=== PATIENT | female | born 1935 | race Caucasian/White ===

== ENCOUNTER 2018-06-13 13:15 | Emergency (ER) | payer MEDICARE, OTHER ==
[~2018-06-13] VITALS: Ht 170.2 cm; Wt 98.0 kg
--- NOTE | 2018-06-13 13:42 | NUR ---
PT FOUND OT BE HYPOXIC IN TRIAGE. PLACED ON O2 VIA NC
[2018-06-13] MEDS ORDERED: POTA10TA12 PO (14:05)
[2018-06-13] MEDS ORDERED: CALC-525 PO (14:05)
[2018-06-13] MEDS ORDERED: BUME1TAB21 PO (14:05)
[2018-06-13] MEDS ORDERED: ASCO500T12 PO (14:05)
[2018-06-13] MEDS ORDERED: D-MA1POW PO (14:05)
[2018-06-13] MEDS ORDERED: ACET325T14 PO (14:05)
[2018-06-13] MEDS ORDERED: ATOR20TA37 PO (14:05)
[2018-06-13] MEDS ORDERED: ALBU18HF INH (14:05)
[2018-06-13] MEDS ORDERED: THIA100T27 PO (14:05)
[2018-06-13] MEDS ORDERED: APIX2.5T PO (14:05)
[2018-06-13] MEDS ORDERED: METH500T7 PO (14:05)
[2018-06-13 14:36] LABS: BASOPHILS # (AUTO) 0.05 x10^3/uL (0-0.1); BASOPHILS % (AUTO) 1 % (0-1); EOSINOPHILS # (AUTO) 0.21 x10^3/uL (0-0.4); EOSINOPHILS % (AUTO) 4 % (1-7); LYMPHOCYTES # (AUTO) 1.51 x10^3/uL (1-3.4); LYMPHOCYTES % (AUTO) 26 % (22-44); MD NO; MEAN CORPUSCULAR HEMOGLOBIN 30.9 pg (27.0-34.8); MEAN CORPUSCULAR HGB CONC 33.4 g/dL (32.4-35.8); MEAN CORPUSCULAR VOLUME 92.5 fL (80-100); MEAN PLATELET VOLUME 8.8 fL (7.4-10.4); MONOCYTES # (AUTO) 0.77 x10^3/uL (0.2-0.8); MONOCYTES % (AUTO) 13 % (2-9); NEUTROPHILS % (AUTO) 57 % (42-75); PLATELET COUNT 190 x10^3/uL (130-400); RED BLOOD COUNT 4.95 x10^6/uL (3.82-5.3); RED CELL DISTRIBUTION WIDTH 14.4 % (9.6-15.2)
[2018-06-13 14:48] LABS: ALBUMIN 3.6 g/dL (3.4-5.0); ANION GAP 5 mmol/L (5-15); CALCIUM 9.1 mg/dL (8.5-10.1); CHLORIDE 105 mmol/L (98-107)
--- NOTE | 2018-06-13 14:50 | NUR ---
IV ESTABLISHED, LABS DRAWN. PT PLACED IN HOSPITAL GOWN AND ON CARDIAC AND VITALS MONITORS. EKG DONE
[2018-06-13 14:53] LABS: CREATININE 0.83 mg/dL (0.55-1.02); TROPONIN I 0.015 ng/mL (0.000-0.045)
--- NOTE | 2018-06-13 15:07 | NUR ---
PT GOING TO CTA
[2018-06-13] MEDS ORDERED: OMNIPAQUE 350 MG/ML, 100ML BOTTLE ONE (15:20)
[2018-06-13 15:44] VITALS: BP 152/83
--- NOTE | 2018-06-13 16:32 | NUR ---
PT UP TO BEDSIDE COMMODE WITH ONE PERSON ASSIST. PT BACK TO BED, STABLE GAIT. CALL LIGHT WITHIN REACH.
--- NOTE | 2018-06-13 17:07 | NUR ---
REPORT TO NEDRA HERNANDEZ.
== END 2018-06-13 18:24 | disposition home or self-care (01) ==
LOC: ED 16:48
DX: I51.7 Cardiomegaly (principal); R05 Cough
CPT/HCPCS: 36415; 71275; 80048; 82040; 83880; 84484; 85025; 93005; 99284; Q9967